=== PATIENT | female | born 1965 | race Caucasian/White ===

== ENCOUNTER 2019-05-15 20:15 | Emergency (ER) | payer MEDICARE, MEDICAID, SELFPAY ==
[2019-05-15 20:30] VITALS: BP 117/80; PULSE 94; RESP 20; TEMP 36.6; O2SAT 98; BMI 47.8
[2019-05-15 23:26] VITALS: BP 143/96; PULSE 102; RESP 18; O2SAT 95
--- NOTE | 2019-05-15 23:29 | PC.NURSE ---
Patient reports that she has MS. PAtient states that she has had increase weakness. Patient reports that in 3-4 days she has had spasms in her legs. Patient states that she has had numbness and tingling in her left arm.
--- NOTE | 2019-05-16 00:11 | ED_ITS ---
Entered by Maria E Lange, acting as scribe for May 15, 2019 20:15 HPI - Extremity Problem General: Chief complaint: Extremity Problem,Nontraumatic Stated complaint: l arm numbness/fatigue/MS Time Seen by Provider: 05/16/19 00:09 Source: patient Mode of arrival: ambulatory Limitations: no limitations History of Present Illness: HPI Narrative: 54 yo f came to the er for numbness and pain in extremities. Onset was today. Pt states that she has MS and that she has not been able to sleep in almost 4 days. Pt states that she has flare ups and has been having some mild sob. MD Complaint: extremity pain Onset (ago): day(s) (today) Pain Consistency: constant Location: upper extremity and lower extremity Quality: aching Relieving factors: nothing Exacerbating factors: nothing Associated symptoms: Reports short of breath; Deny chest pain, fever(s) or rash Review of Systems General: Reports: 10 or more systems reviewed and unremarkable except in HPI and below Const: Denies: fever Eyes: Denies: change in vision ENMT: Denies: throat pain Card: Denies: chest pain Resp: Reports: shortness of breath GI: Denies: abdominal pain : Denies: flank pain Musc: Reports: back pain; Denies: neck pain Skin/Breast: Denies: rash Neuro: Reports: numbness in extremities and weakness in extremities; Denies: headache Psych: Denies: anxiety Endo: Denies: excessive urination James/Lymph: Denies: easy bruising All/Imm: Denies: hives PFSH ED PFSH: Statuses (acute, chronic, etc) shown below reflect problem list status as previously entered and may not be historically accurate Social History Smoking and tobacco status: current every day smoker Physical Exam Const: COMMON NORMALS: no apparent distress, oriented x3 and no limitations GENERAL APPEARANCE: cooperative and comfortable Eye: COMMON NORMALS: PERRL PUPIL: Yes PERRL Neck/C-Spine: COMMON NORMALS: full ROM and no JVD Lymph: LYMPHATIC: no lymphadenopathy noted Chest: COMMONS NORMALS: inspection of chest normal Resp: COMMON NORMALS: normal respiratory effort Cardio: COMMON NORMALS: no JVD and regular rate RATE: regular rate GI: COMMON NORMALS: normal to inspection, nondistended, normoactive bowel sounds : COMMON NORMALS: Yes no CVA tenderness BLADDER/KIDNEY EXAM: Yes no CVA tenderness Back/Pelvis: COMMON NORMALS: no CVA tenderness Extremity: COMMON NORMALS: normal to inspection Neuro: COMMON NORMALS: oriented x3, CN's II-XII intact bilaterally and no sensory deficits noted COORDINATION/BALANCE: [id number] test normal SPEECH: speech normal GAIT: Yes normal gait MOTOR EXAM: strength 5/5 throughout COORDINATION: [id number] test normal Psych: COMMON NORMALS: mental status grossly normal Skin: COMMON NORMALS: no rashes or lesions noted GENERAL SKIN EXAM: no rashes or lesions noted Course Vital Signs: Vital signs: Vital Signs Temperature 97.8 F 05/15/19 20:30 Pulse Rate 76 05/16/19 03:23 Respiratory Rate 18 05/16/19 03:23 Blood Pressure 137/77 05/16/19 03:23 Pulse Oximetry 96 05/16/19 03:23 MDM - Extremity (Nontraumatic) MDM Narrative: Medical decision making narrative: Discussed with who is neurosurgery at [place] where the patient stated she would like to go if she had to be transferred, he states that patient does not need to be admitted or transferred and simply needs a repeat CT head in 48 hours. She is not on blood thinners and has had no recent trauma. I advised her to avoid ibuprofen over the weekend and told her that case management will call her Saturday to set up outpatient CT head but if all else fails and nobody contacts her as a last resort she should come to the ER because she does need CT head without contrast repeated on Saturday to make sure this is not a bleed. As discussed with the neurosurgeon this is likely just the tentorium. Patient agrees to the plan and will avoid ibuprofen and is to return if worse. She also states she is feeling much better than when she first came in we will continue her on steroids for several days for her probable MS flare. She will need to follow-up with her doctor and we will also have case management contact her doctor with the results because Dr. Enedina Webber is not 1 of our physicians. Lab Data: Attestation: I reviewed the patient's lab results. Labs: Lab Results 01/11/20 01/11/20 01/11/20 Range/Units 00:36 00:36 00:36 WBC 9.6 (4.0-10.0) 10^3/ uL RBC 4.83 (4.1-5.3) 10^6/u L Hgb 14.4 (11.5-15.3) g/dL Hct 44.0 (37.0-47.0) % MCV 91.1 (81-99) fL MCH 29.8 (28.0-34.0) pg MCHC 32.7 (30.0-36.0) g/dL RDW 11.8 L (12.1-15.1) % Plt Count 260 (130-400) 10^3/c mm MPV 10.6 H (7.4-10.4) fL Total Counted 100 (0-100) Segmented Neutroph ils 46 % Band Neutrophils 2.0 % Lymphocytes (Manua l) 40 % Monocytes (Manual) 3.0 % Absolute Monocytes 0.3 (0.1-0.6) 10^3/c mm Eosinophils (Manua l) 9 % Absolute Eosinophi ls 0.8 H (0.0-0.7) 10^3/c mm Platelet Estimate Decreased L (Normal) PT 12.70 (10.5-13.3) SECO NDS INR 0.92 (0.8-1.2) Sodium 134 L (136-145) mmol/L Potassium 3.8 (3.5-5.1) mmol/L Chloride 95 L (98-107) mmol/L Carbon Dioxide 27 (22-29) mmol/L Anion Gap 15.8 (5-19) BUN 13 (6-20) mg/dL Creatinine 0.7 (0.5-0.9) mg/dL GFR Calculation 87.2 L (90-130) mL/min Glucose 325 H (74-109) mg/dL Calcium 10.3 H (8.6-10.0) mg/Dl Total Bilirubin 0.2 (0.15-1.2) mg/dL AST 61 H (0-32) U/L ALT 54 H (0-33) U/L Alkaline Phosphata se 91 (35-105) IU/L Total Protein 7.2 (6.6-8.7) g/dL Albumin 4.0 (3.5-5.2) g/dL Globulin 3.2 (1.3-4.6) g/dL Imaging Data^: CXR: Radiologist's impression: [address] [address] XRay Report Signed Patient: Roxane Lang #: [id number] : 1965Acct#:[id number] Age/Sex: 54 / FADM Date: 05/15/19 Loc: ERRoom/Bed: Attending Dr: Ordering Provider/Ordering MD: Lorna Devi MD Date of Service: 05/16/19 Procedure(s): XR chest 1V portable [id number] Accession Number(s): [id number] Report Number: [id number] PROCEDURE INFORMATION: Exam: XR Chest, 1 View Exam date and time: 05/16/2019 12:33 AM Age: 54 years old Clinical indication: Shortness of breath; Additional info: SOA TECHNIQUE: Imaging protocol: XR of the chest Views: 1 view. COMPARISON: No relevant prior studies available. FINDINGS: Lungs: Unremarkable. No consolidation. Pleural space: Unremarkable. No pleural effusion. No pneumothorax. Heart/Mediastinum: Unremarkable. No cardiomegaly. Bones/joints: Unremarkable. XR/XR chest 1V portable [id number] IMPRESSION: No acute findings. Dictated By:Emma Reyna Signed By:Mandi Reyna Date/Time:05/16/19 0056 EKG Data^: EKG 1: Attestation: I personally reviewed and interpreted this EKG as follows: EKG interpretation date: 05/16/19 EKG interpretation time: 00:53 Interpretation: Sinus rhythm rate 89 poor R wave progression nonspecific ST changes no old EKG to compare. Discharge Plan Discharge Patient Disposition: Home, Self-Care Clinical Impression: Painful paresthesia, Multiple sclerosis, Abnormal CT scan of head Condition: Stable Prescriptions: New prednisone 50 mg tablet 50 mg PO DAILY 3 Days Qty: 3 RF: 0 Discharge Orders: Discharge Order (Routine); Ordered 05/16/19 Ordered By: Lorna Devi Patient Instructions: Paresthesia (ED) Activity Restrictions/Additional Instructions: Avoid ibuprofen until you have had your repeat CAT scan on Saturday and cleared by a physician. Case management should call you Saturday to tell you what time and where to go for your CAT scan. If you are not contacted you need to return to an ER for repeat CT head without contrast on Saturday. I spoke with the neurosurgeon at [place] about your CAT scan and your symptoms tonight and at this time you do not need to be admitted or transferred but definitely do need the repeat CAT scan. You are to return to the ER if worse in any way or new symptoms that are different from what you have now. Discharge Date/Time: 05/16/19 03:18 Coding Level of Care Code ED Manufacturing Sales Representative for Chg Fwd Exam Problem Focused The documentation recorded by the Nazario michael Stephanie Lyn, accurately reflects the service I personally performed and the decisions made by me, Lorna Devi MD May 15, 2019 20:15
--- NOTE | 2019-05-16 00:27 | PC.NURSE ---
Physician at patients bedside at this time.
--- NOTE | 2019-05-16 00:30 | XRR_ITS ---
PROCEDURE INFORMATION: Exam: XR Chest, 1 View Exam date and time: 05/16/2019 12:33 AM Age: 54 years old Clinical indication: Shortness of breath; Additional info: SOA TECHNIQUE: Imaging protocol: XR of the chest Views: 1 view. COMPARISON: No relevant prior studies available. FINDINGS: Lungs: Unremarkable. No consolidation. Pleural space: Unremarkable. No pleural effusion. No pneumothorax. Heart/Mediastinum: Unremarkable. No cardiomegaly. Bones/joints: Unremarkable. XR/XR chest 1V portable [id number] IMPRESSION: No acute findings.
--- NOTE | 2019-05-16 00:31 | ECG_ITS ---
Measurements Intervals [place] Rate: 89 P: 44 OH: 165 QRS: -30 QRSD: 86 T: 12 QT: 363 QTc: 443 SINUS RHYTHM LOW QRS VOLTAGE IN PRECORDIAL LEADS [QRS DEFLECTION < 1.0 mV IN CHEST LEADS] POSSIBLE RIGHT VENTRICULAR CONDUCTION DELAY [RSR (QR) IN V1/V2] MINIMAL VOLTAGE CRITERIA FOR LVH, CONSIDER NORMAL VARIANT [MEETS CRITERIA IN OF: R(aVL), S(V1), R(V5), R(V5/V6)+S(V1)] POSSIBLE ANTERIOR MYOCARDIAL INFARCTION [30 ms Q WAVE IN V3/V4, OR R < 0.2 mV IN V4], OF INDETERMINATE AGE Diffuse nonspecific T wave changes No previous ECG available for comparison Electronically Signed On 05-16-2019 16:45:03 SNOW BLOWER by He Saavedra M.D. [id number]
[2019-05-16 00:49] LABS: Hemoglobin 14.4 g/dL (11.5-15.3); Mean Corpuscular HGB Conc 32.7 g/dL (30.0-36.0); Mean Corpuscular Hemoglobin 29.8 pg (28.0-34.0); Mean Corpuscular Volume 91.1 fL (81-99); Mean Platelet Volume 10.6 fL (7.4-10.4); Platelet Count 260 10^3/cmm (130-400); Red Blood Count 4.83 10^6/uL (4.1-5.3); Red Cell Distribution Width 11.8 % (12.1-15.1); White Blood Count 9.6 10^3/uL (4.0-10.0)
[2019-05-16] MEDS: sodium chloride 0.9% 1,000 ML 999 ML IV (00:57)
[2019-05-16 01:01] VITALS: BP 123/85; PULSE 84; RESP 18; O2SAT 98
[2019-05-16 01:05] LABS: Alanine Aminotransferase 54 U/L (0-33); Alkaline Phosphatase 91 IU/L (35-105); Anion Gap 15.8 (5-19); Aspartate Amino Transferase 61 U/L (0-32); Blood Urea Nitrogen 13 mg/dL (6-20); Calcium 10.3 mg/Dl (8.6-10.0); Carbon Dioxide 27 mmol/L (22-29); Chloride 95 mmol/L (98-107); Globulin 3.2 g/dL (1.3-4.6); Glomerular Filtration Rate 87.2 mL/min (90-130); Glucose 325 mg/dL (74-109); Potassium 3.8 mmol/L (3.5-5.1); Sodium 134 mmol/L (136-145); Total Bilirubin 0.2 mg/dL (0.15-1.2); Total Protein 7.2 g/dL (6.6-8.7)
[2019-05-16 01:18] LABS: Absolute Segmented Neutrophil 4.4 10/cmm (1.6-7.1); Band Neutrophils Absolute 0.2 10^3/cmm (0.0-1.2); Segmented Neutrophils 46 %
[2019-05-16 01:19] LABS: Absolute Eosinophils 0.8 10^3/cmm (0.0-0.7); Eosinophils 9 %; Lymphocytes 40 %; Monocytes Absolute 0.3 10^3/cmm (0.1-0.6); Platelet Estimate Decreased (Normal)
[2019-05-16 01:26] LABS: Total Cells Counted 100 (0-100)
--- NOTE | 2019-05-16 01:41 | CTR_ITS ---
PROCEDURE INFORMATION: Exam: CT Head Without Contrast Exam date and time: 05/16/2019 1:44 AM Age: 54 years old Clinical indication: Numbness / parasthesia; Left; Patient HX: HX ms; Additional info: Numbness left side TECHNIQUE: Imaging protocol: Computed tomography of the head without contrast. Total DLP: 863.47 mGy-cm Radiation optimization: All CT scans at this facility use at least one of these dose optimization techniques: automated exposure control; mA and/or kV adjustment per patient size (includes targeted exams where dose is matched to clinical indication); or iterative reconstruction. COMPARISON: No relevant prior studies available. FINDINGS: Brain: Hyperdensity over the right tentorium incisura, likely a small subdural hemorrhage with maximal thickness 5 mm. Mild chronic white matter disease and cerebral volume loss. Ventricles: Normal. No ventriculomegaly. Bones/joints: Unremarkable. No acute fracture. Sinuses: Small right maxillary sinus mucus retention cyst. Mastoid air cells: Visualized mastoid air cells are well aerated. Soft tissues: Unremarkable. CT/CT head wo con* [id number] IMPRESSION: Hyperdensity over the right tentorium incisura, likely a small subdural hemorrhage with maximal thickness 5 mm. Radiation Dose CTDIVOL = (mGy): DLP = 863.47 (mGy-cm)
[2019-05-16 02:50] LABS: INR 0.92 (0.8-1.2)
[2019-05-16 03:02] VITALS: BP 152/68; PULSE 71; RESP 16; O2SAT 96
[2019-05-16 03:23] VITALS: BP 137/77; PULSE 76; RESP 18; O2SAT 96
[2019-05-16 03:37] LABS: Add Urine Microscopic? NO
[2019-05-16 03:43] LABS: Bilirubin Urine Neg (NEGATIVE); Blood Urine Neg (Negative); Glucose Urine UA 2+ (Normal); Ketones Urine Negative (Negative); Leukocyte Esterase Urine Negative (Negative); Nitrate Urine Negative (Negative); Protein Urine Neg (Negative); Urine Appearance Clear (CLEAR); Urine Color Yellow (Yellow); Urobilinogen Urine Norm (Negative); pH Urine 5 (5-7)
--- NOTE | 2019-05-18 09:47 | DCPLANNER ---
credit union manager had message to schedule an outpatient CT scan for patient. credit union manager called patient to confirm that patient still wanted to have CT scan ordered and to confirm who patient sees for primary care for the results to be sent to. Patient confirmed that she did want test ordered and stated her primary care physician was Susanna Dangelo in [facility]. credit union manager faxed order to centralized scheduling. credit union manager called centralized scheduling, spoke with Shivani, a CT was scheduled for Saturday, May 18, 2019 at 12:45. credit union manager called patient and informed patient of the scheduled appointment.
--- NOTE | 2019-05-27 15:09 | DCPLANNER ---
Patient did attend the CT scan scheduled for 05.18.19.
== END 2019-05-16 03:18 | disposition home or self-care (01) ==
PROVIDERS: Emergency Provider Emergency Medicine
DX: R20.2 Paresthesia of skin (principal); G35 Multiple sclerosis; R93.0 Abnormal findings on diagnostic imaging of skull and head, not elsewhere classified; F17.210 Nicotine dependence, cigarettes, uncomplicated; R06.02 Shortness of breath
CPT/HCPCS: 70450; 71045; 80053; 81003; 85007; 85027; 85610; 93005; 96360; 96374; 96375; 99282; J2930; J7030

== ENCOUNTER 2019-05-18 12:23 | Outpatient (CLI) | payer MEDICARE, MEDICAID, SELFPAY ==
--- NOTE | 2019-05-18 12:31 | CT_ITS ---
WS: [id number] CT HEAD TECHNIQUE: Noncontrast CT of the head obtained from the skullbase to the vertex. CLINICAL INFORMATION: PARESTHESIA MS COMPARISON: May 16, 2019 DLP: 766.[address] scans at [facility] use at least one of these dose optimization techniques: automat ed exposure control; mA and/or kV adjustment per patient size (includes targeted exams where dose is matched to clinical indication); or iterative reconstruction. FINDINGS: Previously described right tentorial subdural hematoma is unchanged in size and appearance since [facility]2019. No evidence of new or progressive hemorrhage. Recommend interval follow-up. No hydrocep halus. No mass effect. Mild small vessel changes with mild parenchymal volume loss. Paranasal sinuses and mastoid air cells well aerated. CT/CT head wo con* [id number] IMPRESSION: 1. Small subdural hematoma overlying the right tentorium is unchanged since [facility] 2019. Recommend interval follow-up. 2. No evidence of hydrocephalus or mass effect. 3. Mild small vessel changes.
== END 2019-05-18 12:24 | disposition home or self-care (01) ==
PROVIDERS: PCP Surgery Plastic and Reconstructive Surgery; Visit Provider Emergency Medicine
DX: I62.00 Nontraumatic subdural hemorrhage, unspecified (principal); R20.2 Paresthesia of skin; G35 Multiple sclerosis
CPT/HCPCS: 70450

== ENCOUNTER 2019-06-04 21:27 | Emergency (ER) | payer MEDICARE, MEDICAID, SELFPAY ==
[2019-06-04 21:50] VITALS: BP 153/108; PULSE 113; RESP 20; TEMP 36.6; O2SAT 97; BMI 47.8
[2019-06-04 23:44] VITALS: BP 158/123; PULSE 110; RESP 22; TEMP 36.9; O2SAT 96
--- NOTE | 2019-06-04 23:50 | CTR_ITS ---
PROCEDURE INFORMATION: Exam: CT Head Without Contrast Exam date and time: 06/04/2019 11:51 PM Age: 54 years old Clinical indication: Pain; Headache not specified TECHNIQUE: Imaging protocol: Computed tomography of the head without contrast. Total DLP: 811.93 mGy-cm Radiation optimization: All CT scans at this facility use at least one of these dose optimization techniques: automated exposure control; mA and/or kV adjustment per patient size (includes targeted exams where dose is matched to clinical indication); or iterative reconstruction. COMPARISON: CT head wo con* [id number] 05/18/2019 1:26 PM FINDINGS: Brain: A small right tentorial subdural hematoma is again noted, which appears unchanged. No CT evidence of acute infarction is seen. Ventricles: Normal. No ventriculomegaly. Bones/joints: Unremarkable. No acute fracture. Sinuses: Visualized sinuses are unremarkable. No fluid levels. Mastoid air cells: Visualized mastoid air cells are well aerated. Soft tissues: Unremarkable. CT/CT head wo con* [id number] IMPRESSION: Stable right tentorial subdural hematoma. No acute abnormality is seen. Radiation Dose CTDIVOL = (mGy): DLP = 811.93 (mGy-cm)
--- NOTE | 2019-06-05 00:03 | W.ED.HA ---
HPI - Headache General: Chief Complaint: Headache Stated Complaint: headache Time Seen by Provider: 06/04/19 23:44 History of Present Illness: HPI Narrative: Patient comes in today with complaints of headache. Patient reports that she was seen back on the for some neurologic symptoms and was diagnosed with a small subdural hemorrhage that was approximately 5 mm. Patient had a repeat CT scan on the that showed no change in the hemorrhage, but recommended follow-up. Patient comes in tonight for headache. Patient states she usually takes an NSAID for her headache but was advised not to use those medications due to this abnormality on her CT scan. Patient appears well. Patient appears in mild pain. Review of Systems General: Reports: 10 or more systems reviewed and unremarkable except in HPI and below Neuro: Reports: headache PFSH ED PFSH: Statuses (acute, chronic, etc) shown below reflect problem list status as previously entered and may not be historically accurate Social History Smoking and tobacco status: current every day smoker Physical Exam Const: COMMON NORMALS: no apparent distress and oriented x3 GENERAL APPEARANCE: cooperative HENMT: COMMON NORMALS: normocephalic, external ears normal, EAC's normal, TM's normal bilaterally and external nose normal HEAD & SCALP: normal to inspection and normocephalic FACE & SINUS: normal facial exam NOSE: external nose normal GENERAL EAR: hearing not grossly impaired EXTERNAL EAR: Yes external ears normal EXTERNAL AUDITORY CANAL: EAC's normal TYMPANIC MEMBRANE: TM's normal bilaterally MOUTH: oral and palatal mucosa normal THROAT: posterior oropharynx normal Eye: COMMON NORMALS: PERRL and EOMs intact bilaterally PUPIL: Yes PERRL Neck/C-Spine: COMMON NORMALS: full ROM and no lymphadenopathy Lymph: LYMPHATIC: no lymphedema noted Chest: COMMONS NORMALS: inspection of chest normal and palpation of chest normal Resp: COMMON NORMALS: normal respiratory effort and clear to auscultation bilaterally AUSCULTATION: clear to auscultation bilaterally Cardio: COMMON NORMALS: regular rate and regular rhythm RATE: regular rate RHYTHM: regular rhythm GI: COMMON NORMALS: normal to inspection, nondistended, normoactive bowel sounds and non-tender : COMMON NORMALS: Yes no CVA tenderness BLADDER/KIDNEY EXAM: Yes no CVA tenderness Back/Pelvis: COMMON NORMALS: no CVA tenderness and thoracic and lumbar spine normal to inspection Extremity: COMMON NORMALS: normal to inspection GENERAL: No edema Neuro: COMMON NORMALS: oriented x3, moves all extremities and no focal motor deficits Psych: COMMON NORMALS: mental status grossly normal and cooperative Skin: COMMON NORMALS: no rashes or lesions noted GENERAL SKIN EXAM: no rashes or lesions noted Course Vital Signs: Vital signs: Vital Signs Temperature 98.4 F 06/04/19 23:44 Pulse Rate 110 H 06/05/19 01:31 Respiratory Rate 16 06/05/19 01:31 Blood Pressure 156/103 06/05/19 01:31 Pulse Oximetry 96 06/05/19 01:31 MDM - Headache MDM Narrative: Medical decision making narrative: Patient came in with headache. Patient reports right-sided headache that started this evening. Patient usually takes ibuprofen for headache but has been told not to take ibuprofen now due to a subdural hematoma she recently developed. Exam notes no focal neural deficits. Respirations are even lungs are clear to auscultation. Skin is warm and dry. Differential diagnosis includes extension of the subdural hematoma, migraine headache, tension headache, sinusitis. CT scan showed a stable subdural hematoma and has had no change since his first discovery on the 11th of this month. Patient was medicated with Benadryl and Reglan with good results for headache control and resolution. Patient was recommended to use prescription medication for her headache as needed and to follow-up with primary care for other treatment. Discharge Plan Discharge Patient Disposition: Home, Self-Care Clinical Impression: Headache Qualifiers: Headache type: tension-type Headache chronicity pattern: acute headache Intractability: not intractable Qualified Code(s): G44.209 - Tension-type headache, unspecified, not intractable Condition: Stable Prescriptions: New tramadol-acetaminophen 37.5-325 mg tablet 1 tab PO Q8H PRN (Reason: headache) Qty: 14 RF: 0 Discharge Orders: Discharge Order (Routine); Ordered 06/05/19 Ordered By: Kota Atkinson Referrals: Selene Webber DO [Primary Care Provider] - Discharge Diet: Usual diet Discharge Activity: Increase activity as tolerated Patient Instructions: Acute Headache (ED) Activity Restrictions/Additional Instructions: Drink plenty of water Activity as tolerated Medications as directed for headache Follow-up with primary care as needed Coding Level of Care Code ED Industrial Spray Painter for Chg Fwd Exam Problem Focused
[2019-06-05 00:48] VITALS: BP 155/90; PULSE 118; RESP 16; O2SAT 97
[2019-06-05] MEDS: diphenhydrAMINE 50 mg/mL SDV 1mL 25 MG IVP (00:57)
[2019-06-05] MEDS: metoclopramide 5 mg/mL SDV 2 mL 10 MG IVP (00:57)
[2019-06-05 01:04] VITALS: BP 163/98; O2SAT 96
[2019-06-05 01:31] VITALS: BP 156/103; PULSE 110; RESP 16; O2SAT 96
[2019-06-05 03:10] VITALS: BP 106/62; PULSE 111; RESP 16; O2SAT 96
== END 2019-06-05 03:11 | disposition home or self-care (01) ==
PROVIDERS: Emergency Provider Nurse Practitioner Family; PCP Surgery Plastic and Reconstructive Surgery
DX: G44.209 Tension-type headache, unspecified, not intractable (principal); F17.210 Nicotine dependence, cigarettes, uncomplicated
CPT/HCPCS: 70450; 96374; 96375; 99282; 99284; J1200; J2765

== ENCOUNTER → 2019-10-07 13:35 | Outpatient (BNVA) | payer MEDICARE, MEDICAID, SELFPAY | PROVIDERS: PCP Nurse Practitioner Family; Visit Provider Nurse Practitioner Family | DX: E11.9 Type 2 diabetes mellitus without complications (principal); Z68.42 Body mass index [BMI] 45.0-49.9, adult | CPT/HCPCS: 83036 ==

== ENCOUNTER 2019-10-15 06:00 | Outpatient (RCR) | payer MEDICARE, MEDICAID, SELFPAY | END 2019-11-03 23:59 | disposition home or self-care (01) | LOC: GPT 06:00 | PROVIDERS: PCP Nurse Practitioner Family; Visit Provider Nurse Practitioner Family | DX: M62.81 Muscle weakness (generalized) (principal) | CPT/HCPCS: 97032; 97110; 97162; 97530; G0283 ==

== ENCOUNTER 2019-11-04 06:00 | Outpatient (RCR) | payer MEDICARE, MEDICAID, SELFPAY | END 2019-12-04 23:59 | disposition home or self-care (01) | LOC: GPT 06:00 | PROVIDERS: PCP Nurse Practitioner Family; Visit Provider Nurse Practitioner Family | DX: M62.81 Muscle weakness (generalized) (principal) | CPT/HCPCS: 97032; 97110; 97112; 97116; 97530 ==

== ENCOUNTER 2019-11-28 15:26 | Emergency (ER) | payer MEDICARE, MEDICAID, SELFPAY ==
[2019-11-28 15:31] VITALS: BMI 44.2
[2019-11-28 15:38] VITALS: BP 157/95; PULSE 84; RESP 20; TEMP 36.8; O2SAT 96
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
[2019-11-28] MEDS: meclizine 25 mg tablet 50 MG PO (16:14)
== END 2019-11-28 17:23 | disposition home or self-care (01) ==
PROVIDERS: Emergency Provider Nurse Practitioner Family; PCP Nurse Practitioner Family
DX: F07.81 Postconcussional syndrome (principal); E11.9 Type 2 diabetes mellitus without complications; I10 Essential (primary) hypertension; G35 Multiple sclerosis; F17.210 Nicotine dependence, cigarettes, uncomplicated; W20.8XXA Other cause of strike by thrown, projected or falling object, initial encounter
CPT/HCPCS: 12345; 70450; 99281; 99283; J8597

== ENCOUNTER 2019-12-05 06:00 | Outpatient (RCR) | payer MEDICARE, MEDICAID, SELFPAY | END 2020-01-04 23:59 | disposition home or self-care (01) | LOC: GPT 06:00 | PROVIDERS: PCP Nurse Practitioner Family; Visit Provider Nurse Practitioner Family | DX: M62.81 Muscle weakness (generalized) (principal) | CPT/HCPCS: 97110; 97530 ==

== ENCOUNTER 2019-12-24 15:05 | Outpatient (CLI) | payer MEDICARE, MEDICAID, SELFPAY ==
--- NOTE | 2019-12-24 15:19 | XR_ITS ---
WS: [id number] EXAM: SCOLIOSIS SERIES DATE OF EXAMINATION: 12/24/2019, 1538 hours COMPARISON: None. HISTORY: Patient is 54 years old with chronic back pain. FINDINGS: There are no extensive changes of scoliosis in the mid and lower thoracic spine or the lumbar spine r egion. Minimal curvature to the left in the upper thoracic spine about 8 degrees. Severe changes of a rthritis are seen in the cervical spine. All pedicles are present on the AP radiograph. Scattered zohra nges of arthritis lower lumbar spine. Most prominent in the facets lower lumbar spine. No paraspinal soft tissue abnormality is seen. XR/XR scoliosis survey 4-5V 71389 IMPRESSION: No extensive findings of scoliosis in the spine. Changes of arthritis as descri bed. Slight levoscoliosis apexed T4 level.
== END 2019-12-24 15:06 | disposition home or self-care (01) ==
LOC: RAD 15:11
PROVIDERS: PCP Nurse Practitioner Family; Visit Provider Family Medicine
DX: M54.9 Dorsalgia, unspecified (principal); G89.29 Other chronic pain
CPT/HCPCS: 72083

== ENCOUNTER → 2020-05-24 11:30 | Outpatient (BNVA) | payer MEDICARE, MEDICAID, SELFPAY | PROVIDERS: PCP Family Medicine; Visit Provider Specialist | DX: G62.9 Polyneuropathy, unspecified (principal); F17.210 Nicotine dependence, cigarettes, uncomplicated; R20.0 Anesthesia of skin; R20.2 Paresthesia of skin | CPT/HCPCS: 95909; 95910 ==

== ENCOUNTER → 2020-05-30 10:09 | Outpatient (BNVA) | payer MEDICARE, MEDICAID, SELFPAY | PROVIDERS: PCP Family Medicine; Visit Provider Internal Medicine | DX: M79.7 Fibromyalgia (principal); M25.50 Pain in unspecified joint; Z79.899 Other long term (current) drug therapy; Z11.59 Encounter for screening for other viral diseases; G47.00 Insomnia, unspecified; G62.9 Polyneuropathy, unspecified; F17.210 Nicotine dependence, cigarettes, uncomplicated | CPT/HCPCS: 36415; 80053; 81003; 82306; 82533; 82550; 82728; 82784; 82955; 83516; 83540; 83735; 84100; 84443; 85025; 85651; 86140; 86160; 86431; 86704; 86803; 86812; 87340; 99203; 99204 ==

== ENCOUNTER 2020-06-09 13:33 | Emergency (ER) | payer MEDICARE, MEDICAID, SELFPAY ==
[2020-06-09 13:53] VITALS: BP 137/98; PULSE 85; RESP 18; TEMP 36.6; O2SAT 97; BMI 49.9
--- NOTE | 2020-06-09 14:16 | ED_ITS ---
HPI - General Adult General: Chief complaint: General Medical Stated complaint: Dr. Hendrix sent over for images of head/neck Time Seen by Provider: 06/09/20 14:13 History of Present Illness: HPI narrative: Patient is a 55-year-old female who is sent over here to the ED by Dr. Hendrix the kiss setter hand for imaging. Patient has a history of fibromyalgia, MS, diabetes and arthralgia. I called the rheumatology clinic and they were wanting an x-ray of the lumbar spine, sacroiliac joint, left and right hand, left and right foot. Patient says she is hurting all over especially in her hands. She says she takes ibuprofen 800 mg tablets for pain. Denies any trauma, accident or injury to cause any acute pain. Associated symptoms: Deny chest pain, dyspnea, headache(s), nausea, rash, palpitations or vomiting Review of Systems Const: Denies: fever(s), chills or fatigue Eyes: Denies: change in vision or eye discomfort ENMT: Denies: throat pain, odynophagia, nasal discharge or nasal congestion Card: Denies: chest pain, palpitations, edema, swelling of feet/ankles, dyspnea on exertion or orthopnea Resp: Denies: dyspnea, productive cough or non-productive cough GI: Denies: abdominal pain, nausea, vomiting, diarrhea, constipation or hematochezia : Denies: flank pain, dysuria or hematuria Musc: Reports: back pain (lumbar) and extremity pain (left and Right hand pain); Denies: neck pain or extremity swelling Skin/Breast: Denies: rash or new lesions Neuro: Denies: headache(s), numbness in extremities or weakness in extremities [facility] ED PFSH: Medical History Diabetes Fibromyalgia Gout History of Lyme disease History of traumatic brain injury Hypertension MS (multiple sclerosis) Myasthenia gravis Scoliosis Social History Smoking and tobacco status: current every day smoker cigarettes Packs smoked per day: 0.25 Alcohol intake: current Alcohol intake frequency: few times a month Physical Exam Const: COMMON NORMALS: no acute distress, patient oriented x3 and alert GENERAL APPEARANCE: cooperative and comfortable NUTRITIONAL APPEARANCE: obese HENMT: COMMON NORMALS: normocephalic HEAD & SCALP: normocephalic MOUTH: Normal oral and palatal mucosa present THROAT: posterior oropharynx normal and uvula midline Neck/C-Spine: COMMON NORMALS: supple GENERAL: Yes normal visual inspection Resp: COMMON NORMALS: normal respiratory effort, No retractions, No use of accessory muscles and clear to auscultation bilaterally AUSCULTATION: clear to auscultation bilaterally Cardio: COMMON NORMALS: regular rate, regular rhythm, S1 normal heart sound present, S2 normal heart sound present, No gallops present (Cardio), No clicks present (Cardio), No murmurs present (Cardio) and Peripheral pulses 2+ throughout RATE: regular rate RHYTHM: regular rhythm HEART SOUNDS: S1 normal heart sound present and S2 normal heart sound present PERIPHERAL PULSES: Peripheral pulses 2+ throughout GI: COMMON NORMALS: Normal to inspection, nondistended, normoactive bowel sounds present, Soft to palpation, non-tender and no masses PALPATION: Yes Soft to palpation : COMMON NORMALS: Yes no CVA tenderness BLADDER/KIDNEY EXAM: Yes no CVA tenderness Back/Pelvis: COMMON NORMALS: no CVA tenderness Extremity: COMMON NORMALS: normal to inspection Neuro: COMMON NORMALS: patient oriented x3 and moves all extremities SENSORIUM/ORIENTATION: Yes alert Skin: GENERAL SKIN EXAM: dry skin Course Vital Signs: Vital signs: Vital Signs Temperature 97.9 F 06/09/20 13:53 Pulse Rate 85 06/09/20 13:53 Respiratory Rate 18 06/09/20 13:53 Blood Pressure 137/98 06/09/20 13:53 Pulse Oximetry 97 06/09/20 13:53 MDM - General Adult MDM Narrative: Medical decision making narrative: Patient is a 55-year-old female who was sent over here to the ED by the [facility] kiss setter hand for some imaging studies. Patient was complaining of pain in hand and feet joints. I contacted [facility] rheumatology office and they told me they would like patient to get an x-ray of both right and left hand, x-ray of right and left foot, x-ray of lumbar spine and x-ray of sacroiliac joints. Patient appeared to be in no acute distress or pain. All images were ordered and performed. The lumbar spine x-ray showed some mild osteoarthritis in L1-L5. The rest of the x- rays showed no acute findings and no signs of joint disease. Patient was discharged and told to follow-up with her kiss setter hand. Return to ED precautions given. Patient understood and agreed with plan. Imaging Data^: Xray Ortho: Attestation: I personally reviewed and interpreted this imaging study as follows: Radiologist's impression: [address] [address] XRay Report Signed Patient: Roxane Lang Unit #: [id number] : 1965 Age/Sex: 55 / F ADM Date: 06/09/20 Loc: ER Room/Bed: Attending Dr: Ordering Provider/Ordering MD: Boy Barry Date of Service: 06/09/20 Procedure(s): XR lumbar spine 2-3V* 25763 Accession Number(s): [id number] Report Number: [id number] WS: [id number] Lumbar spine, 3 views, 06/09/2020 Clinical Data: pain Comparison: Scoliosis series which included the lumbar spine, 12/24/2019. Findings: No compression fractures or subluxation is seen. No disc space narrowing is seen. The transverse processes and SI joints are normal. Minimal osteoarthritic spurring is seen from L1 through L5. There are clips in the right upper quadrant from a cholecystectomy. XR/XR lumbar spine 2-3V* 48205 Impression: Mild osteoarthritis L1-L5. Dictated By: Trang Ojeda MD Signed By: Trang Ojeda MD Signed Date/Time: 06/09/20 1621 DD/ [address] [place] [address] XRay Report Signed Patient: Roxane Lang Unit #: [id number] : 1965 Age/Sex: 55 / F ADM Date: 06/09/20 Loc: ER Room/Bed: Attending Dr: Ordering Provider/Ordering MD: Boy Barry Date of Service: 06/09/20 Procedure(s): XR sacroiliac jts m 3V 99198 Accession Number(s): [id number] Report Number: [id number] WS: [id number] Sacroiliac joints, 3 views, 06/09/2020 Clinical Data: pain Comparison: None. Findings: The SI joints are normal in width. No erosion, sclerosis or destruction is seen. There are no fractures or dislocations. The adjacent visualized pelvis and hips are unremarkable. XR/XR sacroiliac jts m 3V 27243 Impression: Negative SI joints. Dictated By: Trang Ojeda MD Signed By: Trang Ojeda MD Signed Date/Time: 06/09/201620 DD/ [address] [address] XRay Report Signed Patient: Roxane Lang Unit #: [id number] : 1965 Age/Sex: 55 / F ADM Date: 06/09/20 Loc: ER Room/Bed: Attending Dr: Ordering Provider/Ordering MD: Boy Barry Date of Service: 06/09/20 Procedure(s): XR hand RT 2V 44271 Accession Number(s): [id number] Report Number: [id number] WS: [id number] Right hand, 2 views, 06/09/2020 Clinical Data: pain Comparison: None. Findings: No fractures or dislocations are seen. The soft tissues are unremarkable. The joint spaces are normal XR/XR hand RT 2V 03043 Impression: Negative right hand. Dictated By: Trang Ojeda MD Signed By: Trang Ojeda MD Signed Date/Time: 06/09/201602 DD/ [address] [address] XRay Report Signed Patient: Roxane Lang Unit #: [id number] : 1965 Age/Sex: 55 / F ADM Date: 06/09/20 Loc: ER Room/Bed: Attending Dr: Ordering Provider/Ordering MD: Boy Barry Date of Service: 06/09/20 Procedure(s): XR hand LT 2V 92233 Accession Number(s): [id number] Report Number: [id number] WS: [id number] Left hand, 2 views, 06/09/2020 Clinical Data: pain Comparison: None. Findings: No fractures or dislocations are seen. The soft tissues are unremarkable. The joint spaces are normal XR/XR hand LT 2V 90368 Impression: Negative left hand. Dictated By: Trang Ojeda MD Signed By: Trang Ojeda MD Signed Date/Time: 06/09/201606 DD/ 05 [place] [address] XRay Report Signed Patient: Roxane Lang Unit #: [id number] : 1965 Age/Sex: 55 / F ADM Date: 06/09/20 Loc: ER Room/Bed: Attending Dr: Ordering Provider/Ordering MD: Boy Barry Date of Service: 06/09/20 Procedure(s): XR foot RT 2V 12327 Accession Number(s): [id number] Report Number: [id number] WS: [id number] Right foot, 2 views, 06/09/2020 Clinical Data: pain Comparison: None. Findings: No fractures or dislocations are seen. No bone destruction or erosion is noted. The joint spaces and soft tissues are normal. There is a small Achilles spur. XR/XR foot RT 2V 35263 Impression: Negative right foot. Dictated By: Trang Ojeda MD Signed By: Trang Ojeda MD Signed Date/Time: 06/09/201607 DD/ 06 [place] [id number] XRay Report Signed Patient: Roxane Lang Unit #: [id number] : 1965 Age/Sex: 55 / F ADM Date: 06/09/20 Loc: ER Room/Bed: Attending Dr: Ordering Provider/Ordering MD: Boy Barry Date of Service: 06/09/20 Procedure(s): XR foot LT 2V 71519 Accession Number(s): [id number] Report Number: [id number] WS: [id number] Left foot, 2 views, 06/09/2020 Clinical Data: pain Comparison: None. Findings: No fractures or dislocations are seen. No bone destruction or erosion is noted. The joint spaces and soft tissues are normal. There is a plantar spur and an Achilles spur. XR/XR foot LT 2V 62410 Impression: Negative left foot. Dictated By: Trang Ojeda MD Signed By: Trang Ojeda MD Signed Date/Time: 06/09/201608 DD/ 08 Discharge Plan Discharge Patient Disposition: Home Clinical Impression: Arthralgia Qualifiers: Joint pain location: unspecified Qualified Code(s): M25.50 - Pain in unspecified joint Condition: Stable Prescriptions: No Action albuterol sulfate 90 mcg/actuation HFA aerosol inhaler 2 puff INHALATION Q6H PRNRF: 0 prednisone 10 mg tablet 10 mg PO DAILY PRNRF: 0 lisinopril 10 mg tablet 10 mg PO DAILY Qty: 30 RF: 1 ibuprofen 800 mg tablet 800 mg PO TID PRN (Reason: pain) Qty: 30 RF: 0 cyclobenzaprine 10 mg tablet 10 mg PO TID PRNRF: 0 gabapentin 300 mg capsule 300 mg PO TID RF: 0 celecoxib 100 mg capsule 100 mg PO BID RF: 0 cholecalciferol (vitamin D3) [Dialyvite Vitamin D] 125 mcg (5,000 unit) capsule 125 mcg PO DAILY RF: 0 Discharge Orders: Discharge ED (Routine); Ordered 06/09/20 Ordered By: Boy Barry Referrals: Rambo Alan MD [Primary Care Provider] - Discharge Diet: Regular Discharge Activity: Increase activity as tolerated Patient Instructions: Fibromyalgia (ED) Activity Restrictions/Additional Instructions: Follow-up with medical provider as directed in the next 7-10 days. Continue taking all previously prescribed medications as directed.. Return to the ER or your medical provider if condition worsens. Please read and understand discharge instructions. If any questions, please ask. Coding Level of Care Code ED Concrete Curer for Chg Fwd Exam Comprehensive
--- NOTE | 2020-06-09 15:47 | XR_ITS ---
WS: [id number] Right hand, 2 views, 06/09/2020 Clinical Data: pain Comparison: None. Findings: No fractures or dislocations are seen. The soft tissues are unremarkable. The joint space s are normal XR/XR hand RT 2V 54944 Impression: Negative right hand.
--- NOTE | 2020-06-09 15:47 | XR_ITS ---
WS: [id number] Right foot, 2 views, 06/09/2020 Clinical Data: pain Comparison: None. Findings: No fractures or dislocations are seen. No bone destruction or erosion is noted. The joint spaces and soft tissues are normal. There is a small Achilles spur. XR/XR foot RT 2V 35850 Impression: Negative right foot.
--- NOTE | 2020-06-09 15:47 | XR_ITS ---
WS: [id number] Left foot, 2 views, 06/09/2020 Clinical Data: pain Comparison: None. Findings: No fractures or dislocations are seen. No bone destruction or erosion is noted. The joint spaces and soft tissues are normal. There is a plantar spur and an Achilles spur. XR/XR foot LT 2V 94484 Impression: Negative left foot.
--- NOTE | 2020-06-09 15:47 | XR_ITS ---
WS: [id number] Lumbar spine, 3 views, 06/09/2020 Clinical Data: pain Comparison: Scoliosis series which included the lumbar spine, 12/24/2019. Findings: No compression fractures or subluxation is seen. No disc space narrowing is seen. The transverse proc esses and SI joints are normal. Minimal osteoarthritic spurring is seen from L1 through L5. There are clips in the right upper quadrant from a cholecystectomy. XR/XR lumbar spine 2-3V* 06558 Impression: Mild osteoarthritis L1-L5.
--- NOTE | 2020-06-09 15:47 | XR_ITS ---
WS: [id number] Sacroiliac joints, 3 views, 06/09/2020 Clinical Data: pain Comparison: None. Findings: The SI joints are normal in width. No erosion, sclerosis or destruction is seen. There are no fractur es or dislocations. The adjacent visualized pelvis and hips are unremarkable. XR/XR sacroiliac jts m 3V [id number] Impression: Negative SI joints.
--- NOTE | 2020-06-09 15:47 | XR_ITS ---
WS: [id number] Left hand, 2 views, 06/09/2020 Clinical Data: pain Comparison: None. Findings: No fractures or dislocations are seen. The soft tissues are unremarkable. The joint spaces are normal XR/XR hand LT 2V [id number] Impression: Negative left hand.
[2020-06-09] MEDS: HYDROcodone-acetaminophen 7.5-325 mg Tablet 2 TAB PO (16:40)
--- NOTE | 2020-06-09 16:40 | PC.NURSE ---
scanner on this cpu not working. sent home two . hydrocodone with patient, witnessed by sterling peres
== END 2020-06-09 16:42 | disposition home or self-care (01) ==
PROVIDERS: Emergency Provider Physician Assistant; PCP Family Medicine
DX: M25.50 Pain in unspecified joint (principal); E11.9 Type 2 diabetes mellitus without complications; I10 Essential (primary) hypertension; G35 Multiple sclerosis; F17.210 Nicotine dependence, cigarettes, uncomplicated
CPT/HCPCS: 12345; 72100; 72202; 73120; 73620; 99281; 99283

== ENCOUNTER 2020-07-05 14:40 | Outpatient (CLI) | payer MEDICARE, MEDICAID, SELFPAY ==
[2020-07-05 15:14] LABS: Basophils # 0.1 10^3/uL (0.0-0.1); Basophils % 1.3 %; Eosinophils # 1.3 10^3/uL (0.0-0.8); Eosinophils % 11.9 %; Hemoglobin 14.9 g/dL (11.5-15.3); Lymphocytes # 4.6 10^3/uL (0.8-4.8); Lymphocytes % 41.4 %; Mean Corpuscular HGB Conc 32.4 g/dL (30.0-36.0); Mean Corpuscular Hemoglobin 29.7 pg (28.0-34.0); Mean Corpuscular Volume 91.8 fL (81-99); Mean Platelet Volume 10.5 fL (7.4-10.4); Monocytes # 0.6 10^3/uL (0.2-0.9); Monocytes % 5.2 %; Neutrophils # 4.43 10^3/uL (1.8-7.7); Nucleated Red Blood Cells % 0 %; Platelet Count 262 10^3/cmm (130-400); Red Blood Count 5.01 10^6/uL (4.1-5.3); Red Cell Distribution Width 12.1 % (12.1-15.1); White Blood Count 11.1 10^3/uL (4.0-10.0)
[2020-07-05 15:48] LABS: Alkaline Phosphatase 75 IU/L (35-105); Aspartate Amino Transferase 27 U/L (0-32); C Reactive Protein 5.1 mg/L (0.0-4.9); Chloride 99 mmol/L (98-107); Potassium 4.7 mmol/L (3.5-5.1); Sodium 139 mmol/L (136-145)
[2020-07-05 15:54] LABS: Calcium 9.6 mg/dL (8.5-10.5); Parathyroid Hormone 49.7 pg/mL (15-65)
[2020-07-05 16:16] LABS: Erythrocyte Sedimentation Rate 21 mm/hr (0-15)
[2020-07-05 17:33] LABS: Alanine Aminotransferase 26 U/L (0-33); Anion Gap 16.7 (5-19); Blood Urea Nitrogen 9 mg/dL (6-20); Calcium 9.2 mg/dL (8.5-10.5); Carbon Dioxide 28 mmol/L (22-29); Glomerular Filtration Rate 103.8 mL/min (90-130); Glucose 135 mg/dL (65-115); Osmolality Calculated 289 mOsm/kg (285-295); Phosphorus 3.2 mg/dL (2.5-4.5); Total Bilirubin 0.2 mg/dL (0.15-1.2)
[2020-07-06 09:44] LABS: PROTEIN, TOTAL 6.3 g/dL (6.1-8.1)
[2020-07-06 11:49] LABS: Creatinine, Random Urine 53 mg/dL (20-275); Protein, Total, Random 5 mg/dL (5-24); Protein/Creatinine Ratio 0.094 (0.021-0.161); Protein/Creatinine Ratio 94 mg/g creat (21-161)
[2020-07-06 15:24] LABS: ALBUMIN 3.6 g/dL (3.8-4.8); ALPHA 1 GLOBULIN 0.3 g/dL (0.2-0.3); ALPHA 2 GLOBULIN 0.9 g/dL (0.5-0.9); BETA 1 GLOBULIN 0.4 g/dL (0.4-0.6); BETA 2 GLOBULIN 0.4 g/dL (0.2-0.5); GAMMA GLOBULIN 0.8 g/dL (0.8-1.7)
[2020-07-07 09:28] LABS: Albumin,Urine Random 0 %; Alpha-1-Globulins Urine Random 0 %; Alpha-2-Globulins Urine Random 0 %; Beta-Globulin,Urine Random 0 %; Gamma Globulin,Urine Random 0 %
== END 2020-07-05 14:41 | disposition home or self-care (01) ==
LOC: LAB 14:43
PROVIDERS: PCP Family Medicine; Visit Provider Internal Medicine
DX: E83.52 Hypercalcemia (principal)
CPT/HCPCS: 36415; 80053; 82310; 83970; 84100; 84155; 84165; 85025; 85651; 86140

== ENCOUNTER 2020-07-05 18:08 | Emergency (ER) | payer MEDICARE, MEDICAID, SELFPAY ==
[2020-07-05 18:20] VITALS: BP 140/91; PULSE 63; RESP 18; TEMP 36.6; O2SAT 97; BMI 46.0
--- NOTE | 2020-07-05 19:24 | ED_ITS ---
HPI - Ear Problem General: Chief complaint: Ear Stated complaint: pain in left ear Time Seen by Provider: 07/05/20 19:14 History of Present Illness: HPI Narrative: 55-year-old female patient presents to the emergency department with 2-hour onset of left ear pain. She reports similar symptoms with history of swimmer's ear. She states take ibuprofen, 1 dose prior to arrival. She reports taking Flonase for allergies. MD Complaint: ear pain Location: left ear Duration: constant Severity: moderate Relieving factors: NDAIDs Exacerbating factors: nothing Context: other (swimmers ear) Discharge from ear: no Associated symptoms: Reports ear or mastoid pain (lt) and other (c/o allergy symptoms); Denies fever(s) or headache(s) Review of Systems General: Reports: 10 or more systems reviewed and unremarkable except in HPI and below Const: Denies: fever(s), chills or diaphoresis Eyes: Denies: blurry vision or eye redness ENMT: Reports: ear or mastoid pain (lt); Denies: throat pain, uvular edema, oral sores, dental pain, halitosis or disequilibrium Card: Denies: chest pain, palpitations or irregular heart rhythm Resp: Denies: dyspnea, productive cough, non-productive cough or wheezing GI: Denies: abdominal pain, nausea or vomiting : Denies: difficulty voiding or dysuria Musc: Denies: back pain Skin/Breast: Denies: rash, pruritus, skin tenderness or changes in skin color Neuro: Denies: headache(s), weakness in extremities or behavioral changes Psych: Denies: anxiety or depression James/Lymph: Denies: easy bruising [facility] ED PFSH: Medical History (Updated 07/05/20 @ 19:30 by DARWIN Harris) Fibromyalgia Gout History of Lyme disease History of traumatic brain injury Hypertension MS (multiple sclerosis) Myasthenia gravis Scoliosis Social History Smoking and tobacco status: current every day smoker cigarettes Packs smoked per day: 0.25 Alcohol intake: current Alcohol intake frequency: few times a month Physical Exam Const: COMMON NORMALS: no acute distress, patient oriented x3, healthy appearing and alert GENERAL APPEARANCE: cooperative, comfortable and well hydrated HENMT: COMMON NORMALS: normocephalic, atraumatic, hearing grossly normal bilaterally, external ears normal, Normal external nose present, Normal nasal mucous membranes and turbinates present, moist oral mucous membranes and oropharynx normal HEAD & SCALP: normal to inspection, normocephalic and atraumatic FACE & SINUS: normal facial exam and face symmetric NOSE: Normal external nose present, Normal nasal mucous membranes and turbinates present and No nasal discharge present EXTERNAL EAR: Yes external ears normal, Yes mastoids normal and Yes no periauricular adenopathy EXTERNAL AUDITORY CANAL: Abnormal EAC present EAC laterality: left (swelling) Details: edema and EAC tenderness TYMPANIC MEMBRANE: TM abnormal TM laterality: bilateral dull and scarred THROAT: posterior oropharynx normal, tonsils normal and uvula midline; no uvular edema Eye: COMMON NORMALS: Equal, round and reactive pupils present and EOMs intact bilaterally GENERAL EYE: appearance normal, both eyes and all related structures PUPIL: Yes Equal, round and reactive pupils present Neck/C-Spine: COMMON NORMALS: full ROM and no lymphadenopathy GENERAL: Yes normal visual inspection and Yes trachea midline CERVICAL SPINE: Yes cervical ROM normal Lymph: LYMPHATIC: no lymphadenopathy noted Chest: COMMONS NORMALS: normal inspection of the chest and normal palpation of entire chest wall Resp: COMMON NORMALS: normal respiratory effort and clear to auscultation bilaterally AUSCULTATION: clear to auscultation bilaterally Cardio: COMMON NORMALS: regular rhythm, S1 normal heart sound present and S2 normal heart sound present RHYTHM: regular rhythm HEART SOUNDS: S1 normal heart sound present and S2 normal heart sound present GI: COMMON NORMALS: Soft to palpation and non-tender INSPECTION: Yes normal to inspection PALPATION: Yes Soft to palpation : COMMON NORMALS: Yes no CVA tenderness BLADDER/KIDNEY EXAM: Yes no CVA tenderness Back/Pelvis: COMMON NORMALS: no CVA tenderness and thoracic and lumbar spine normal to inspection Extremity: COMMON NORMALS: normal to inspection and capillary refill normal Neuro: COMMON NORMALS: patient oriented x3 and no focal motor deficits SENSORIUM/ORIENTATION: Yes alert Psych: COMMON NORMALS: mental status grossly normal, Normal thought process present and cooperative ACTIVITY/MOTOR BEHAVIOR: Yes appropriate eye contact THOUGHT PROCESS: Normal thought process present Skin: COMMON NORMALS: no rashes or lesions noted and turgor normal GENERAL SKIN EXAM: no rashes or lesions noted and turgor normal Course Vital Signs: Vital signs: Vital Signs Temperature 97.9 F 07/05/20 18:20 Pulse Rate 62 07/05/20 19:36 Respiratory Rate 14 07/05/20 19:36 Blood Pressure 123/81 07/05/20 19:36 Pulse Oximetry 96 07/05/20 19:36 Discharge Plan Discharge Patient Disposition: Home Clinical Impression: Otitis externa of left ear Qualifiers: Otitis externa type: swimmer's ear Chronicity: acute Qualified Code(s): H60.332 - Swimmer's ear, left ear Acute otalgia Qualifiers: Laterality: left Qualified Code(s): H92.02 - Otalgia, left ear Condition: Stable Prescriptions: New Cortisporin-TC 3.3-3-10-0.5 mg/mL drops,suspension 4 drp otic (ear) TID Qty: 10 RF: 0 No Action albuterol sulfate 90 mcg/actuation HFA aerosol inhaler 2 puff INHALATION Q6H PRNRF: 0 lisinopril 10 mg tablet 10 mg PO DAILY Qty: 30 RF: 1 ibuprofen 800 mg tablet 800 mg PO TID PRN (Reason: pain) Qty: 30 RF: 0 cyclobenzaprine 10 mg tablet 10 mg PO TID PRNRF: 0 atbspugava-wircpqqwcmmdz-xohe 50-300-40 mg capsule 1 cap PO Q4H PRNRF: 0 oxybutynin chloride 5 mg tablet 5 mg PO TID RF: 0 gabapentin 300 mg capsule 300 mg PO TID RF: 0 celecoxib 100 mg capsule 100 mg PO BID RF: 0 cholecalciferol (vitamin D3) [Dialyvite Vitamin D] 125 mcg (5,000 unit) capsule 125 mcg PO DAILY RF: 0 Discharge Orders: Discharge ED (Routine); Ordered 07/05/20 Ordered By: Jennifer Hamilton Discharge Diet: Usual diet Discharge Activity: Resume usual activity Patient Instructions: Opioid Safety Activity Restrictions/Additional Instructions: Apply warm ice compresses to the affected side several times daily as needed for pain Wear cotton ball in the left ear to avoid water in the ear If not improved in 3 to 4 days, follow-up with your primary care provider Take Tylenol/ibuprofen as directed on bottle as needed for pain. 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
[2020-07-05 19:36] VITALS: BP 123/81; PULSE 62; RESP 14; O2SAT 96
== END 2020-07-05 19:36 | disposition home or self-care (01) ==
PROVIDERS: Emergency Provider Nurse Practitioner Family
DX: H60.332 Swimmer's ear, left ear (principal); H92.02 Otalgia, left ear; I10 Essential (primary) hypertension; F17.210 Nicotine dependence, cigarettes, uncomplicated; G35 Multiple sclerosis
CPT/HCPCS: 99281

== ENCOUNTER 2020-07-13 13:29 | Outpatient (CLI) | payer MEDICARE, MEDICAID, SELFPAY ==
--- NOTE | 2020-07-13 13:31 | MR_ITS ---
WS: [id number] MRI HEAD WITH CONTRAST TECHNIQUE: Sagittal T1, T2 axial, T2 axial FLAIR, axial susceptibility weighted imaging, axial diffus ion weighted images, and coronal T2 images were obtained. Pre and post-T1 axial and post T1 coronal i mages. ADC and FSPGR images. CLINICAL INFORMATION: CHRONIC HEADACHE;SYNCOPE COMPARISON: CT head November 23, 2019 FINDINGS: No evidence of restricted diffusion to suggest acute ischemia. Ventricular system and basal cisterns are patent. Mild small vessel changes. Mild parenchymal volume loss. Normal posterior fossa. Normal v ascular flow voids at the skull base. No extra-axial fluid collections. No evidence of mass or mass e ffect. Retention cysts in the maxillary sinuses. Mild mucosal thickening right mastoid tip. No hemosiderin on susceptibly weighted images. Normal optic chiasm and pituitary infundibulum. Tempor al lobes and hippocampal formations are normal in appearance. No abnormal gadolinium enhancement. Nor mal dural venous sinuses. MR/MR head wo/w con [id number] IMPRESSION: 1. No evidence of restricted diffusion to suggest acute ischemia. 2. Mild small vessel changes with mild parenchymal volume loss. 3. No hemosiderin on susceptibly weighted images. 4. Small retention cysts in the maxillary sinuses. 5. No abnormal gadolinium enhancement. 6. No other significant findings.
[2020-07-13] MEDS: gadobenate dimeglumine 20 mL vial IV (14:13)
== END 2020-07-13 13:30 | disposition home or self-care (01) ==
LOC: RADSHAW 13:30
PROVIDERS: Visit Provider Family Medicine
DX: R51.9 Headache, unspecified (principal); R55 Syncope and collapse; M27.40 Unspecified cyst of jaw
CPT/HCPCS: 70553; A9577

== ENCOUNTER → 2020-12-19 10:48 | Outpatient (BNVA) | payer MEDICARE, MEDICAID, SELFPAY | PROVIDERS: Visit Provider Internal Medicine | DX: Z79.899 Other long term (current) drug therapy (principal) | CPT/HCPCS: 36415; 80053; 85025; 85651; 86140 ==

== ENCOUNTER → 2020-12-20 08:04 | Outpatient (BNVA) | payer MEDICARE, MEDICAID, SELFPAY | PROVIDERS: Visit Provider Specialist | DX: E11.42 Type 2 diabetes mellitus with diabetic polyneuropathy (principal); G43.711 Chronic migraine without aura, intractable, with status migrainosus; R20.0 Anesthesia of skin; R20.2 Paresthesia of skin; M79.7 Fibromyalgia; M25.50 Pain in unspecified joint; E83.52 Hypercalcemia; Z79.899 Other long term (current) drug therapy; Z71.89 Other specified counseling; F17.200 Nicotine dependence, unspecified, uncomplicated; F17.210 Nicotine dependence, cigarettes, uncomplicated | CPT/HCPCS: 99204; 99205; 99213; 99214 ==

== ENCOUNTER → 2021-02-09 15:23 | Outpatient (BNVA) | payer MEDICARE, MEDICAID, SELFPAY | PROVIDERS: Visit Provider Specialist | DX: G43.711 Chronic migraine without aura, intractable, with status migrainosus (principal); E11.42 Type 2 diabetes mellitus with diabetic polyneuropathy; Z79.84 Long term (current) use of oral hypoglycemic drugs; M54.9 Dorsalgia, unspecified; G89.29 Other chronic pain; Z68.42 Body mass index [BMI] 45.0-49.9, adult | CPT/HCPCS: 99214 ==

== ENCOUNTER 2021-07-04 14:21 | Outpatient (CLI) | payer MEDICARE, MEDICAID, SELFPAY ==
--- NOTE | 2021-07-04 14:36 | MR_ITS ---
WS: [id number] MRI LUMBAR SPINE NONCONTRAST HISTORY: M54.9 - Dorsalgia, unspecified COMPARISON: None available. TECHNIQUE: Sagittal and axial multisequence imaging is submitted. Quality of this examination is compromised by patient's body habitus and motion. Normal lumbar alignment with no compression fractures or marrow edema. Disc spaces and vertebral body heights are well-preserved. Conus terminates normally at L1. L1-L2: Normal. L2-L3: Mild facet and ligamentum flavum arthropathy. No stenosis. L3-L4: Very mild annular disc bulging. There is very minimal disc protrusion in the LEFT foramen. Mil d ligamentum flavum and facet arthritis. Mild narrowing of the central canal and foramina. L4-L5: Mild annular disc bulging and osteophytic ridging. There is disc contacting and displacing the ventral thecal sac. Moderate bilateral facet ligamentum flavum arthritis. Mild bilateral subarticula r recess stenosis. L5-S1: Mild disc bulging with disc contacting the S1 nerve roots but no displacement. No high-grade s tenosis. Visualized retroperitoneum is negative. MR/MR lumbar spine wo con* [id number] IMPRESSION: 1. No high-grade central or foraminal stenosis. Disc spaces are well preserved . 2. Facet joint arthritis from L2-3 to L5-S1 is mild to moderate. 3. Mild bilateral subarticular recess stenosis L4-5 due to facet and ligamentu m flavum disease and mild disc bulging. 4. Very minimal disc contacting but no displacement of the S1 nerve roots. 5. Very small disc protrusion in the LEFT foramen of L3-4.
== END 2021-07-04 14:22 | disposition home or self-care (01) ==
PROVIDERS: PCP Family Medicine; Visit Provider Specialist
DX: M47.816 Spondylosis without myelopathy or radiculopathy, lumbar region (principal); M47.817 Spondylosis without myelopathy or radiculopathy, lumbosacral region; M51.26 Other intervertebral disc displacement, lumbar region; M48.061 Spinal stenosis, lumbar region without neurogenic claudication
CPT/HCPCS: 72148

== ENCOUNTER → 2021-08-18 09:42 | Outpatient (BNVA) | payer MEDICARE, MEDICAID, SELFPAY | PROVIDERS: PCP Family Medicine; Visit Provider Internal Medicine | DX: E83.52 Hypercalcemia (principal); G35 Multiple sclerosis; Z79.899 Other long term (current) drug therapy; M79.7 Fibromyalgia; M10.9 Gout, unspecified; R53.83 Other fatigue; G62.9 Polyneuropathy, unspecified | CPT/HCPCS: 80053; 82310; 82728; 83540; 83735; 83970; 84100; 84550; 85025; 85651; 86140 ==

== ENCOUNTER → 2021-08-28 14:59 | Outpatient (BNVA) | payer MEDICARE, MEDICAID, SELFPAY | PROVIDERS: PCP Family Medicine; Visit Provider Internal Medicine | DX: M79.7 Fibromyalgia (principal); M25.50 Pain in unspecified joint; M54.50 Low back pain, unspecified; F17.210 Nicotine dependence, cigarettes, uncomplicated | CPT/HCPCS: 99213 ==